=== PATIENT | female | born 1950 | race Caucasian/White ===

== ENCOUNTER 2017-08-09 16:22 | Inpatient (IN) ==
[2017-08-09] MEDS ORDERED: Acetaminophen 325 MG TABLET PO ONE (17:25)
[2017-08-09 17:28] LABS: Basophils # 0.1 K/mcL (0.0-0.2); Basophils % 0.6 %; Eosinophils # 0.1 K/mcL (0.0-0.6); Eosinophils % 1.6 %; Immature Granulocytes % 0.5 % (0-4); Immature Platelets 2.9 % (1.1-6.1); Lymphocytes # 1.8 K/mcL (0.6-4.6); Lymphocytes % 21.2 %; Mean Corpuscular HGB Conc 33.3 g/dL (31.6-35.5); Mean Corpuscular Hemoglobin 29.5 pg (28.0-33.3); Mean Corpuscular Volume 88.4 fL (83.0-100.0); Mean Platelet Volume 9.7 fL (9.4-12.4); Monocytes # 0.5 K/mcL (0.0-1.3); Monocytes % 6.5 %; Neutrophils # 5.8 K/mcL (1.6-8.9); Platelet Count 258 K/mcL (140-400); Red Blood Count 5.09 M/mcL (3.82-4.97); Red Cell Distribution Width 13.5 % (11.5-14.5); Segmented Neutrophils % 69.6 %
[2017-08-09 17:39] LABS: Bilirubin,Urine Negative (Negative); Blood,Urine Trace (Negative); Clarity,Urine Turbid (Clear); Color,Urine Yellow (Yellow); Glucose,Urine (UA) Normal (Normal); Ketones,Urine Negative (Negative); Leukocyte Esterase,Urine Large (Negative); Nitrite,Urine Negative (Negative); Protein,Urine Negative (Neg-Trace); Specific Gravity,Urine 1.013 (1.010-1.025); Urobilinogen,Urine Normal (Normal)
[2017-08-09 17:42] LABS: Amphetamine Screen,Urine Negative ng/mL (Cutoff=1000); Bacteria,Urine Moderate per hpf (None-Few); Barbiturate Screen,Urine Negative ng/mL (Cutoff=200); Benzodiazepines Screen,Urine Negative ng/mL (Cutoff=200); Cannabinoid Screen,Urine Positive ng/mL (Cutoff = 50); Cocaine Screen,Urine Negative ng/mL (Cutoff= 300); Hyaline Casts,Urine None Seen per lpf (None-Few); Opiate Screen,Urine Negative ng/mL (Cutoff=300); Phencyclidine Screen,Urine Negative ng/mL (Cutoff=25); Squamous Epithelial Cell,Urine Many per lpf (None-Few); WBC,Urine TNTC per hpf (0-3)
[2017-08-09 17:46] LABS: Acetaminophen < 1.0 mcg/mL (10-30); BUN/Creatinine Ratio 22 (6-26); Blood Urea Nitrogen 19 mg/dL (8-23); Calcium 9.4 mg/dL (8.6-10.3); Carbon Dioxide 28 mEq/L (23-29); Chloride 109 mEq/L (98-107); Ethanol < 10 mg/dL (0-10); Glucose 119 mg/dL (70-105); Osmolality,Calculated 295 (280-300); Potassium 3.6 mEq/L (3.5-5.1); Salicylate < 5.0 mg/dL (15.0-30.0); Sodium 141 mEq/L (136-145); eGFR For African Americans > 60 (> 60); eGFR For Non-African Americans > 60 (> 60)
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
[2017-08-09 18:04] LABS: RBC,Urine 0-3 per hpf (0-3)
[2017-08-09] MEDS ORDERED: *HR* LORazepam 1 MG TABLET PO ONE (20:06)
[2017-08-09] MEDS ORDERED: *HR* LORazepam 1 MG TABLET PO PRN (20:31)
[2017-08-09] MEDS ORDERED: *HR* LORazepam 2 MG/ML VIAL IM PRN (20:31)
[2017-08-09] MEDS ORDERED: Haloperidol Lactate 5 MG/ML VIAL IM PRN (20:31)
[2017-08-09] MEDS ORDERED: MOM Conc 10 ML UD.LIQ PO PRN (20:31)
[2017-08-09] MEDS ORDERED: Mag Hydrox/Al Hydrox/Simeth 30 ML UDC PO PRN (20:31)
[2017-08-09] MEDS ORDERED: Nystatin POWDER 30 GM BOTTLE TP PRN (20:37)
[2017-08-09] MEDS ORDERED: Fluticasone Propionate Nasal 50 MCG/SPRAY BOTTLE NS PRN (20:37)
[2017-08-09] MEDS: Temazepam 15 MG CAPSULE PO SCH (23:55)
[2017-08-10] MEDS: Acetaminophen 325 MG TABLET PO PRN ×2 (05:26→12:25)
[2017-08-10] MEDS: Cholecalciferol (D-3) 1,000 UNIT TABLET PO SCH (09:44)
[2017-08-10] MEDS: Multivit/Ca/Min/Fe/FA 1 TAB TABLET PO SCH (09:45)
[2017-08-10] MEDS: Magnesium Oxide 400 MG TABLET PO SCH (09:45)
[2017-08-10] MEDS: Nicotine 21 MG PATCH.TD24 TD SCH (09:46)
[2017-08-10] MEDS: (Mirabegron [Myrbetriq] 25 MG) PO SCH (09:47)
[2017-08-10] MEDS: (Breo Ellipta 100-25 Mcg Inh) IH SCH (09:47)
[2017-08-10] MEDS: tiZANidine 4 MG TABLET PO PRN ×2 (12:25→20:47)
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
[2017-08-10] MEDS: Temazepam 15 MG CAPSULE PO SCH (20:47)
[2017-08-10] MEDS: hydrOXYzine pamoate 25 MG CAPSULE PO PRN (20:50)
[2017-08-10] MEDS: traZODone 50 MG TABLET PO PRN (20:50)
[2017-08-11] MEDS: Acetaminophen 325 MG TABLET PO PRN ×3 (04:30→22:22)
[2017-08-11] MEDS: tiZANidine 4 MG TABLET PO PRN ×3 (04:30→14:59)
[2017-08-11] MEDS: (Mirabegron [Myrbetriq] 25 MG) PO SCH (09:03)
[2017-08-11] MEDS: (Breo Ellipta 100-25 Mcg Inh) IH SCH (09:03)
[2017-08-11] MEDS: Cholecalciferol (D-3) 1,000 UNIT TABLET PO SCH (09:17)
[2017-08-11] MEDS: Multivit/Ca/Min/Fe/FA 1 TAB TABLET PO SCH (09:17)
[2017-08-11] MEDS: Magnesium Oxide 400 MG TABLET PO SCH (09:17)
[2017-08-11] MEDS: Nicotine 21 MG PATCH.TD24 TD SCH (09:18)
--- NOTE | 2017-08-11 16:51 | Psychiatry Progress Note ---
Date of Encounter: 08/11/17 Time of Encounter: 16:55 Subjective Interval history: Patient tells me that she is feeling better and better prepared t return home. She is experiencing some nausea and diarrhea since starting the medication. She is not sure if it is a side effects of the medication or not. She denies any other adverse side effects of her medication. She is working with the social media marketing analyst for follow-up appointments. She denies any auditory or visual hallucinations. She denies any suicidal homicidal ideation. Her depression is getting less; better attention and concentration, improved sleep. She is going to groups and focused on becoming more future oriented and making plans. I discussed with her the possibility of continuing med management. We talked about continued stay for another 24 hours on the 72 hour hold just to monitor her maintenance and safety to make sure there are no issues. She is agreeable to this reluctantly. Objective: Exam Patient orientation: Yes Person, Yes Time, Yes Place Level of alertness: Alert Patient appearance: Appropriate Behavior: anxious (mildly) Psychomotor activity: Normal Eye contact: Maintains Eye Contact Mood description: Depressed (less) Affect description: congruent with mood Speech pattern: Normal rate, Normal rhythm, Normal tone Speech volume: Normal Thought process: Intact, Linear, Goal Oriented (starting to be) Thought content: Yes Intact Judgment: Fair Insight: Partial Results - Vital Signs Vital Signs: Temp Pulse Resp BP Pulse Ox 98.6 F 70 16 129/69 100 08/11/17 10:50 08/11/17 10:50 08/11/17 10:50 08/11/17 10:50 08/09/17 19:36 Assessment and Plan (1) Major depression, recurrent Current visit: Yes Status: Acute Plan: Continue hospitalization, Suicide Precautions per unit protocol, Group Therapy Risks, benefits, side effects, alternatives discussed w/pt: Yes ( Continue Zoloft 50 mg po qd) Patient agreeable to treatment: Yes Qualifiers: Active/Remission status: currently active Major depression episode severity : moderate Qualified Code(s): F33.1 - Major depressive disorder, recurrent, moderate Consult Discharge Plan - Plan [facility]17 8:00 am (The above appointment is with Charleen Weaver for outpatient mental health counseling services. It is also recommended that you begin participating in groups in the clinic, which are offered several time throughout the week. ) Macie Hernández, KESHAWN [Advanced Practice Nurse] - 08/17/17 11:30 am (The above appointment is with Macie Hernández for primary health care and medication management services.)
[2017-08-11] MEDS: hydrOXYzine pamoate 25 MG CAPSULE PO PRN ×2 (18:27→21:48)
[2017-08-11] MEDS: Temazepam 15 MG CAPSULE PO SCH (21:47)
[2017-08-11] MEDS: traZODone 50 MG TABLET PO PRN (21:48)
[2017-08-12] MEDS: Multivit/Ca/Min/Fe/FA 1 TAB TABLET PO SCH (08:41)
[2017-08-12] MEDS: Cholecalciferol (D-3) 1,000 UNIT TABLET PO SCH (08:41)
[2017-08-12] MEDS: Magnesium Oxide 400 MG TABLET PO SCH (08:42)
[2017-08-12] MEDS: Nicotine 21 MG PATCH.TD24 TD SCH (08:45)
[2017-08-12] MEDS: (Breo Ellipta 100-25 Mcg Inh) IH SCH (08:45)
[2017-08-12] MEDS: (Mirabegron [Myrbetriq] 25 MG) PO SCH (08:45)
[2017-08-12] MEDS: Acetaminophen 325 MG TABLET PO PRN (08:46)
[2017-08-12 08:52] VITALS: BP 148/79
[2017-08-12] MEDS: tiZANidine 4 MG TABLET PO PRN (09:42)
--- NOTE | 2017-08-12 10:58 | Discharge Summary ---
Date of Encounter: 08/12/17 Time of Encounter: 10:45 Diagnosis - Discharge Diagnosis (1) Major depression, recurrent Status: Acute Qualifiers: Active/Remission status: currently active Major depression episode severity : moderate Qualified Code(s): F33.1 - Major depressive disorder, recurrent, moderate Medications - Discharge Medications Prescriptions: hydrOXYzine pamoate [HydrOXYzine Pamoate] 25 mg PO TID PRN 30 Days #60 capsule PRN Reason: Anxiety Sertraline [Zoloft] 50 mg PO DAILY 30 Days #30 tablet traZODone [TraZODone] 50 mg PO HS PRN 30 Days #30 tablet PRN Reason: Insomnia Atenolol [Tenormin] 25 mg PO DAILY 06/28/16 [History] Fluticasone Propionate Nasal [Flonase] 1 spray NS DAILY PRN 06/28/16 [History] Losartan Potassium [Cozaar] 100 mg PO DAILY 06/28/16 [History] Meclizine HCl [Verticalm] 25 mg PO BID PRN 06/28/16 [History] Multivitamin with Iron [Animal Shapes Plus Iron] 1 tab PO DAILY 06/28/16 [ History] Omeprazole [PriLOSEC] 20 mg PO DAILY 06/28/16 [History] Pramipexole [Mirapex] 2 mg PO HS 06/28/16 [History] Tizanidine HCl [Zanaflex] 4 mg PO QID PRN 06/28/16 [History] Albuterol Sulfate [Proair Hfa] 2 puff IH Q4H PRN 08/09/17 [History] Cholecalciferol (Vitamin D3) [Vitamin D3] 2,000 unit PO DAILY 08/09/17 [History] Fluticasone/Vilanterol [Breo Ellipta 100-25 Mcg INH] 1 each IH DAILY 08/09/17 [ History] Mirabegron [Myrbetriq] 25 mg PO DAILY 08/09/17 [History] Temazepam [Restoril] 15 mg PO HS 08/09/17 [History] Nystatin POWDER [Nystop] 1 appl TP BID PRN bottle 08/12/17 [Rx] Sertraline [Zoloft] 50 mg PO DAILY 30 Days #30 tablet 08/12/17 [Rx] hydrOXYzine pamoate [HydrOXYzine Pamoate] 25 mg PO TID PRN 30 Days #60 capsule 08/12/17 [Rx] traZODone [TraZODone] 50 mg PO HS PRN 30 Days #30 tablet 08/12/17 [Rx] 3 Allergy/AdvReac Type Severity Reaction Status Date / Time amitriptyline [From Elavil] AdvReac See Verified 08/09/17 16:56 Comments estrogens, conjugated AdvReac Vomiting Verified 08/09/17 16:56 [From Premarin] Sulfa (Sulfonamide AdvReac Vomiting Verified 08/09/17 16:56 Antibiotics) Provider Date of admission: 08/09/17 20:26 Primary care physician: PCP NONE Assessment and Plan - Patient/Caregiver Discharge Instructions Activity: resume usual activities as tolerated Diet: regular diet - Follow up Plan Follow up with: [facility] [[facility]] - 08/17/17 8:00 am (The above appointment is with Charleen Weaver for outpatient mental health counseling services. It is also recommended that you begin participating in groups in the clinic, which are offered several time throughout the week. ) Macie Hernández, STATE ASSESSED PROPERTIES DIRECTOR [Advanced Practice Nurse] - 08/17/17 11:30 am (The above appointment is with Macie Hernández for primary health care and medication management services.) Functional capacity at discharge: independent ambulation Overall status at discharge: Stable Disposition: Home, Self-Care Hospital Course Hospital course: Ms. Holcomb is a 67 year old female who tells me she feels quote pretty good". She denies any side effects of restarting the Zoloft. She denies any suicidal/ homicidal ideation. She denies any auditory or visual hallucinations. She is very future oriented stating that she needed to be in the hospital to regroup and to figure out how she was going to move forward in her life. "I can hold it together. I want to start taking care of [facility]isma now for a change". She talks about making a brand-new's start and having the support to do that. Feels more hopeful and less helpless just getting some sleep and restarting the Zoloft. Her depression is decreased now she has a plan and goal for her future. She is very self care focus. She denies feeling anxious. She has a friend that will help support her and she will be able to get back into the clinic to get social work assistance and get her medications refilled. She verbalized that being on the inpatient unit was helpful going to groups and talking to other people who are going through similar things that she is going through, it makes her feel more human and normal. Time spent discussing smoking cessation with patient: 3 to 10 minutes Does patient wish to continue nicotine replacement upon disc: No - Time Spent with Patient Total time spent providing and/or coordinating discharge services: 25 min Less than 30 minutes Quality - Multiple Antipsychotics Patient discharged on 2 or more antipsychotic medications: No Procedures - Procedures Procedures: Medication Management, Crisis Stabilization, Supportive Therapy, Group Therapy Mental Status Exam - Mental Status Exam Patient orientation: Yes Person, Yes Time, Yes Place, Yes Circumstance Level of alertness: Alert Patient appearance: Appropriate, Well Groomed, Well-nourished Additional observations: wearing makeup Behavior: calm Psychomotor activity: Normal Eye contact: Maintains Eye Contact Mood description: Euthymic/stable Affect description: congruent with mood Speech pattern: Normal rate, Normal rhythm, Normal tone Speech Volume: Normal Thought process: Intact, Linear, Goal Oriented Thought Content: Yes Intact Judgment: Fair Insight: Partial
== END 2017-08-12 12:25 | disposition home or self-care (01) | DRG 885 ==
LOC: EMEROO 16:22 → 1ANU 20:26
PROVIDERS: ADMIT Psychiatry & Neurology Psychiatry; ATTEND Psychiatry & Neurology Psychiatry